=== PATIENT | male | born 1960 | race Caucasian/White ===

== ENCOUNTER 2016-08-30 09:41 | Emergency (ER) | payer MEDICARE ==
--- NOTE | 2016-08-30 10:53 | Emergency Department Report ---
Chief Complaint: Eye Problems Stated Complaint: LT EYE INJURY/VISION - HPI History of Present Illness: Patient c/o left eye pain and blindness x 3 months. States told by eye he has cataract and needs surgery. States has rx for BP meds but hasn't picked them up from pharmacy. Denies chest pain, SOB. - Exam Vital Signs: Vital Signs 08/30/16 10:24 Temperature 98.7 F Pulse Rate 101 H Respiratory 18 Rate Blood Pressure 185/127 [Right] O2 Sat by Pulse 96 Oximetry Physical Exam: Genral: NAD. Eye: White light reflex in left eye. MSE screening note: Focused history and physical exam performed. Due to findings the following was ordered: ED Medical Decision Making - Medical Decision Making Patient to see MD in main ED due to elevated BP. ED Disposition for MSE Condition: Stable
[2016-08-30] MEDS ORDERED: CATAPRES PO ONE (10:54)
[2016-08-30 17:26] VITALS: BP 167/118
--- NOTE | 2016-08-30 17:52 | Emergency Department Report ---
[id number] LT EYE INJURY/VISION Time Seen by Provider: 08/30/16 17:33 Source: patient, RN notes reviewed, old records reviewed Mode of arrival: Ambulatory Limitations: No Limitations - History of Present Illness Initial comments: This is a 55-year-old male, previously unknown to me. Apparently has a known history of chronic cataract. He was seen in February 2015 for a cataract. He was referred to outpatient ophthalmology, he informed her that he went to the office , but did not like the office staff attitude. The patient was sent to the ER by kari Yap. Lianne indicated that this is an attorney law clerk, but the triage nurse indicated that it a physician. Patient has persistent loss of vision in the left eye, which is chronic for months, and not new, worsening or different. He denies severe headache, chest pain, abdominal pain, nausea, vomiting or diarrhea. His left eye vision loss is constant, and has no exacerbating or relieving factors. -: Gradual, month(s) Location: eyes Severity scale (0 -10): 5 Consistency: constant Improves with: none Worsens with: none Associated Symptoms: denies: confusion, chest pain, cough, diaphoresis, fever/ chills, headaches, loss of appetite, malaise, nausea/vomiting, rash, seizure, shortness of breath, syncope, weakness - Related Data Previous Rx's Medication Instructions Recorded Last Taken Type Labetalol [Normodyne TAB] 100 mg PO BID #60 tablet 03/06/16 Unknown Rx Lisinopril/Hydrochlorothiazide 1 tab PO QDAY #30 tablet 03/06/16 Unknown Rx [Zestoretic 10-12.5 mg] Acetaminophen [Tylenol] 500 mg PO Q6HR PRN #30 tablet 08/30/16 Unknown Rx amLODIPine [Norvasc] 5 mg PO DAILY #30 tab 08/30/16 Unknown Rx Allergies Allergy/AdvReac Type Severity Reaction Status Date / Time Penicillins Allergy Rash Verified 12/25/13 20:25 flu shot Allergy Unknown Uncoded 12/25/13 20:25 ED Review of Systems ROS: Stated complaint: LT EYE INJURY/VISION Other details as noted in HPI Constitutional: denies: fever Eyes: as per HPI ENT: dental pain (CHRONIC DENTAL PAIN) Respiratory: denies: cough Cardiovascular: denies: chest pain Gastrointestinal: denies: abdominal pain Genitourinary: denies: urgency, dysuria Musculoskeletal: denies: back pain Skin: denies: rash, lesions Neurological: denies: headache Psychiatric: as per HPI ED Past Medical Hx - Past Medical History Hx Hypertension: Yes (no med x 3 years) Hx Psychiatric Treatment: Yes (depression) - Social History Smoking Status: Current Every Day Smoker Substance Use Type: Alcohol - Medications Home Medications: Home Medications Medication Instructions Recorded Confirmed Last Taken Type Labetalol [Normodyne TAB] 100 mg PO BID #60 tablet 03/06/16 Unknown Rx Lisinopril/Hydrochlorothiazide 1 tab PO QDAY #30 tablet 03/06/16 Unknown Rx [Zestoretic 10-12.5 mg] Acetaminophen [Tylenol] 500 mg PO Q6HR PRN #30 tablet 08/30/16 Unknown Rx amLODIPine [Norvasc] 5 mg PO DAILY #30 tab 08/30/16 Unknown Rx ED Physical Exam - General Limitations: No Limitations General appearance: alert, in no apparent distress - Head Head exam: Present: atraumatic, normocephalic - Eye Eye exam: Present: PERRL (right eye is equally reactive to light. Visual acuity in the right eye is intact to color perception, finger counting, reading at close distance.), EOMI, other (the left eye cornea is cloudy, opaque, does not react to light. No visual acuity to the left eye.) - ENT ENT exam: Present: other (patient has poor dentition. There is no trismus, malocclusion, there is no elevation of the patient the tongue.) - Neck Neck exam: Present: normal inspection, full ROM. Absent: tenderness, meningismus - Respiratory Respiratory exam: Present: normal lung sounds bilaterally. Absent: respiratory distress, wheezes, rales, rhonchi, stridor, chest wall tenderness - Cardiovascular Cardiovascular Exam: Present: regular rate, normal rhythm, normal heart sounds. Absent: bradycardia, tachycardia, irregular rhythm, systolic murmur, diastolic murmur, rubs, gallop - GI/Abdominal GI/Abdominal exam: Present: soft, normal bowel sounds. Absent: distended, tenderness, guarding, rebound, rigid, pulsatile mass - Rectal Rectal exam: Present: deferred - Extremities Exam Extremities exam: Present: normal inspection, full ROM, normal capillary refill. Absent: tenderness, pedal edema, joint swelling, calf tenderness - Back Exam Back exam: Present: normal inspection, full ROM. Absent: tenderness, CVA tenderness (R), CVA tenderness (L), muscle spasm, paraspinal tenderness, vertebral tenderness - Neurological Exam Neurological exam: Present: alert, oriented X3, normal gait, other (Extraocular movements intact. Tongue midline. No facial droop. Facial sensation intact to light touch in the V1, V2, V3 distribution bilaterally. 5 and 5 strength in 4 extremities.. Sensation is intact to light touch in 4 extremities.). Absent : motor sensory deficit - Psychiatric Psychiatric exam: Present: normal affect, normal mood - Skin Skin exam: Present: warm, dry, intact, normal color. Absent: rash ED Course Vital Signs 08/30/16 08/30/16 08/30/16 10:24 11:57 14:39 Temperature 98.7 F Pulse Rate 101 H 101 H Respiratory 18 Rate Blood Pressure 185/127 Blood Pressure 185/127 165/111 [Right] O2 Sat by Pulse 96 Oximetry 08/30/16 08/30/16 17:25 17:27 Temperature Pulse Rate 84 Respiratory 18 18 Rate Blood Pressure Blood Pressure 167/118 [Right] O2 Sat by Pulse 98 98 Oximetry - Reevaluation(s) Reevaluation #1: 08/30/16 17:58 Differential diagnosis: Chronic cataracts, elevated blood pressure, medication noncompliance Assessment and plan: 55-year-old male who presents to the ER with an identical set of symptoms as when he presented in February 2016. He is documented then to have a cataract, and the cataract has persisted. The patient is instructed to follow-up with ophthalmology. He will be referred to Dr. Power. In addition, his blood pressure has been elevated chronically, and he is asymptomatic. He is instructed as to the importance of blood pressure medication compliance, and the importance of close outpatient follow-up. He will be discharged with instructions to follow-up with primary care, ophthalmology. Given chronicity and duration of symptoms, lack of acute clinical changes, I see no objective indication to pursue laboratory workup at this time, or to admit the patient. ED Medical Decision Making - Lab Data Vital Signs 08/30/16 08/30/16 08/30/16 10:24 11:57 14:39 Temperature 98.7 F Pulse Rate 101 H 101 H Respiratory 18 Rate Blood Pressure 185/127 Blood Pressure 185/127 165/111 [Right] O2 Sat by Pulse 96 Oximetry 08/30/16 08/30/16 17:25 17:27 Temperature Pulse Rate 84 Respiratory 18 18 Rate Blood Pressure Blood Pressure 167/118 [Right] O2 Sat by Pulse 98 98 Oximetry Critical care attestation.: If time is entered above; I have spent that time in minutes in the direct care of this critically ill patient, excluding procedure time. ED Disposition Clinical Impression: Cataract, Elevated blood pressure Disposition: DISCHARGED TO HOME OR SELFCARE Is pt being admited?: No Does the pt Need Aspirin: No Condition: Stable Instructions: Cataracts (ED), Hypertension (ED) Additional Instructions: It is very important that you follow up with an outpatient primary care doctor for your elevated blood pressure. I have prescribed a medication for your hypertension; it is called amlodipine. Long-term complications of hypertension includes stroke, heart attack, disability, , paralysis, permanent loss of quality of life. Follow up with a primary care doctor within the next week for your hypertension. The [facility] is a local low-cost clinic. Dr. Monge is a local primary care doctor. I recommend that you follow-up with an outpatient metalworking instructor as soon as possible for your left eye. Dr. Chaudhari is a local metalworking instructor. Return to the ER right away with chest pain, headache, shortness of breath, abdominal pain, nausea, vomiting, diarrhea. Prescriptions: Acetaminophen [Tylenol] 500 mg PO Q6HR PRN #30 tablet PRN Reason: Pain amLODIPine [Norvasc] 5 mg PO DAILY #30 tab Referrals: ANGELA GARCIA MD [Primary Care Provider] - 3-5 Days SANGEETHA REECE MD, PHD [Staff Physician] - 3-5 Days BAM CHAUDHARI MD [Staff Physician] - 3-5 Days [facility] [Provider Group] - 3-5 Days
== END 2016-08-30 18:57 | disposition home or self-care (01) ==
LOC: ED 09:41
DX: H26.9 Unspecified cataract (principal); I10 Essential (primary) hypertension; F17.200 Nicotine dependence, unspecified, uncomplicated
CPT/HCPCS: 99282

== ENCOUNTER 2016-12-05 07:26 | Emergency (ER) | payer MEDICARE ==
--- NOTE | 2016-12-05 08:22 | Emergency Department Report ---
ED Medical Clearance HPI - General Chief complaint: Medical Clearance Stated complaint: CHECK UP Source: patient Mode of arrival: Ambulatory - History of Present Illness Initial comments: 56-year-old [place] male comes in for today for "checkup". Patient states he wants blood pressure checked. He "needs paper to take to his doctor". Patient denies any headaches no dizziness no change in speech no unstable gait. Patient is unsure of what medications he is currently taking. Review of medical records shows the patient is on several blood pressure medicines. Home medications: Previous Rx's Medication Instructions Recorded Last Taken Type Labetalol [Normodyne TAB] 100 mg PO BID #60 tablet 03/06/16 Unknown Rx Lisinopril/Hydrochlorothiazide 1 tab PO QDAY #30 tablet 03/06/16 Unknown Rx [Zestoretic 10-12.5 mg] Acetaminophen [Tylenol] 500 mg PO Q6HR PRN #30 tablet 08/30/16 Unknown Rx amLODIPine [Norvasc] 5 mg PO DAILY #30 tab 08/30/16 Unknown Rx Hydrochlorothiazide [HCTZ] 25 mg PO QDAY #90 tablet 12/05/16 Unknown Rx amLODIPine [Norvasc] 10 mg PO DAILY #90 tab 12/05/16 Unknown Rx Allergies/Adverse reactions: Allergies Allergy/AdvReac Type Severity Reaction Status Date / Time Penicillins Allergy Rash Verified 12/05/16 07:47 flu shot Allergy Unknown Uncoded 12/05/16 07:47 ED Review of Systems ROS: Stated complaint: CHECK UP Other details as noted in HPI ED Past Medical Hx - Past Medical History Hx Hypertension: Yes (no med x 3 years) Hx Psychiatric Treatment: Yes (depression) - Surgical History Past Surgical History?: No - Social History Smoking Status: Current Every Day Smoker Substance Use Type: Alcohol - Medications Home Medications: Home Medications Medication Instructions Recorded Confirmed Last Taken Type Labetalol [Normodyne TAB] 100 mg PO BID #60 tablet 03/06/16 Unknown Rx Lisinopril/Hydrochlorothiazide 1 tab PO QDAY #30 tablet 03/06/16 Unknown Rx [Zestoretic 10-12.5 mg] Acetaminophen [Tylenol] 500 mg PO Q6HR PRN #30 tablet 08/30/16 Unknown Rx amLODIPine [Norvasc] 5 mg PO DAILY #30 tab 08/30/16 Unknown Rx Hydrochlorothiazide [HCTZ] 25 mg PO QDAY #90 tablet 12/05/16 Unknown Rx amLODIPine [Norvasc] 10 mg PO DAILY #90 tab 12/05/16 Unknown Rx ED Physical Exam - General Limitations: No Limitations General appearance: alert - Head Head exam: Present: other - ENT ENT exam: Present: normal exam, mucous membranes moist - Neck Neck exam: Present: normal inspection, full ROM - Cardiovascular Cardiovascular Exam: Present: regular rate, normal rhythm, normal heart sounds - GI/Abdominal GI/Abdominal exam: Present: other - Extremities Exam Extremities exam: Present: normal inspection, full ROM. Absent: pedal edema ED Course Vital Signs 12/05/16 12/05/16 12/05/16 07:43 08:22 08:25 Temperature 98.4 F Pulse Rate 99 H 80 80 Respiratory 16 16 Rate Blood Pressure 172/104 191/121 Blood Pressure 191/121 [Right] O2 Sat by Pulse 100 100 Oximetry 12/05/16 09:27 Temperature Pulse Rate Respiratory Rate Blood Pressure Blood Pressure 154/103 [Right] O2 Sat by Pulse Oximetry ED Disposition Clinical Impression: HTN, goal below 140/80 Disposition: DISCHARGED TO HOME OR SELFCARE Is pt being admited?: No Does the pt Need Aspirin: No Condition: Stable Instructions: Hypertension (ED) Additional Instructions: Please follow up with her primary care provider for further evaluation Prescriptions: amLODIPine [Norvasc] 10 mg PO DAILY #90 tab Hydrochlorothiazide [HCTZ] 25 mg PO QDAY #90 tablet Referrals: PRIMARY CARE [Primary Care Provider] - 3-5 Days
[2016-12-05] MEDS: CATAPRES PO ONE (08:25)
[2016-12-05 09:28] VITALS: BP 154/103
== END 2016-12-05 09:49 | disposition home or self-care (01) ==
LOC: ED 07:26
DX: Z01.30 Encounter for examination of blood pressure without abnormal findings (principal); I10 Essential (primary) hypertension; F32.9 Major depressive disorder, single episode, unspecified; F17.200 Nicotine dependence, unspecified, uncomplicated
CPT/HCPCS: 99282

== ENCOUNTER 2017-02-21 10:33 | Emergency (ER) | payer MEDICARE ==
[2017-02-21] MEDS ORDERED: TORADOL IM ONE (11:36)
[2017-02-21] MEDS ORDERED: APRESOLINE IM ONE (11:51)
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
--- NOTE | 2017-02-21 13:02 | XRay Report ---
LEFT HUMERUS: History: Left arm pain. AP and lateral views of the humerus demonstrate normal mineralization and contours for this patient's age. No destructive changes are noted and the adjacent soft tissues are normal. IMPRESSION: Normal left humerus.
--- NOTE | 2017-02-21 13:02 | XRay Report ---
RIGHT HUMERUS: History: Right arm pain. AP and lateral views of the humerus demonstrate normal mineralization and contours for this patient's age. No destructive changes are noted and the adjacent soft tissues are normal. IMPRESSION: Normal right humerus.
--- NOTE | 2017-02-21 13:02 | XRay Report ---
LEFT HAND, 3 views: History: Left hand pain. The bony architecture is intact. Bony alignment is normal. No soft tissue abnormalities are seen. The joint spaces appear preserved. IMPRESSION: Normal left hand.
--- NOTE | 2017-02-21 13:03 | XRay Report ---
ROUTINE CHEST, TWO VIEWS: HISTORY: chest pain. The trachea, heart, mediastinal contour, lung phelan and bony thorax are unremarkable. IMPRESSION: Unremarkable chest x-ray.
[2017-02-21] MEDS ORDERED: NORMODYNE IV ONE (13:17)
[2017-02-21 13:44] VITALS: BP 140/98
== END 2017-02-21 14:15 | disposition home or self-care (01) ==
LOC: ED 10:33
DX: S20.212A Contusion of left front wall of thorax, initial encounter (principal); S60.042A Contusion of left ring finger without damage to nail, initial encounter; I10 Essential (primary) hypertension; M79.602 Pain in left arm; M79.601 Pain in right arm; Y08.89XA Assault by other specified means, initial encounter; Y93.9 Activity, unspecified; Y92.9 Unspecified place or not applicable; Y99.9 Unspecified external cause status
CPT/HCPCS: 71020; 73060; 73130; 96372; 99283; J0360; J1885